=== PATIENT | male | born 1950 | race Caucasian/White ===

== ENCOUNTER 2017-03-04 08:27 | Day surgery (SDC) | payer MEDICARE, OTHER ==
[2017-03-04] VITALS (9 sets, daily range): BP systolic 106–167; BP diastolic 67–98; PULSE 54–72; RESP 16–20; TEMP 98–98.6; O2SAT 88–97
[~2017-03-04] VITALS: Ht 175.3 cm; Wt 97.3 kg
[~2017-03-04 08:27] MED LIST: AMLO2.5T PO; ARTISOL2 EACH EYE; ASPI81TA82 PO; BUSP15TA PO; DUONI NEB; ENOX40P SQ; HYDR-2768 PO; HYDR-3580 PO; METO50TA PO; MIRA33502 PO; MOBI15TA PO; PROT40TA PO; SENN-29 PO; SERO300T2 PO; SERT-129 PO; TAB-TAB PO; VASO10TA8 PO
[2017-03-04] MEDS ORDERED: HYDR-3799 PO (08:57)
[2017-03-04] MEDS ORDERED: METF500T PO (08:57)
[2017-03-04] MEDS ORDERED: AMMO12CR4 TOP (08:57)
[2017-03-04] MEDS ORDERED: DOCU100C PO (08:57)
[2017-03-04] MEDS ORDERED: LOPE2CAP PO (08:57)
[2017-03-04] MEDS ORDERED: LISI-515 PO (08:57)
[2017-03-04] MEDS ORDERED: MILKSUS PO (08:57)
[2017-03-04] MEDS ORDERED: ATOR10TA15 PO (08:57)
[2017-03-04] MEDS ORDERED: METO50TA PO (08:57)
[2017-03-04] MEDS ORDERED: SODIUM CHLORIDE FLUSH PRN IV FLUSH (09:00)
[2017-03-04] MEDS ORDERED: SODIUM CHLORIDE FLUSH BID IV FLUSH SCH (09:00)
[2017-03-04] MEDS ORDERED: SODIUM CHLOR 0.9% 1000 ML IV SCH (09:00)
[2017-03-04 09:28] LABS: AUTOMATED NEUTROPHIL # 5.5 TH/MM3 (1.8-7.7); BASOPHIL # 0.1 TH/MM3 (0-0.2); BASOPHIL % 0.8 % (0.0-2.0); EOSINOPHIL # 0.1 TH/MM3 (0-0.4); EOSINOPHIL % 1.3 % (0.0-4.0); HEMATOCRIT 39.7 % (39.0-51.0); HEMO FLAGS DIFF FINAL; LYMPH % 17.5 % (9.0-44.0); LYMPHOCYTE # 1.3 TH/MM3 (1.0-4.8); MEAN CELL VOLUME 97.7 FL (80.0-100.0); MEAN CORPUSCULAR HEMOGLOBIN 33.9 PG (27.0-34.0); MEAN CORPUSCULAR HGB CONC 34.7 % (32.0-36.0); MONO % 7.4 % (0.0-8.0); PLATELET COUNT 186 TH/MM3 (150-450); RED BLOOD COUNT 4.06 MIL/MM3 (4.50-5.90); RED CELL DISTRIBUTION WIDTH 13.8 % (11.6-17.2); WHITE BLOOD COUNT 7.5 TH/MM3 (4.0-11.0)
[2017-03-04 09:38] LABS: APTT (PATIENT) 27.3 SEC (24.3-30.1)
[2017-03-04] MEDS ORDERED: MIDAZOLAM HCL 5 MG/5 ML VIAL ONE (10:02)
[2017-03-04] MEDS ORDERED: fentaNYL CITRATE 250 MCG/5 ML AMP ONE (10:03)
[2017-03-04] MEDS ORDERED: LIDOCAINE 1%/EPINEPHrine 1:100,000 SOLN 20 ML VIAL ONE (10:10)
--- NOTE | 2017-03-04 11:43 | RADRPT ---
EXAM DATE/TIME: 03/04/2017 10:29 [place] COMPARISON: No previous studies available for comparison. INDICATIONS : Cirrhosis SEDATION TIME: 15 minutes BIOPSY SITE: liver MEDICATION(S): 1.) 2 mg midazolam (Versed) IV 2.) 100 mcg fentanyl (Sublimaze) IV DEVICE(S): 1.) 18 gauge BioPince needle MEDICAL HISTORY : Cirrhosis. SURGICAL HISTORY : None. ENCOUNTER: Initial ACUITY: 1 day PAIN SCORE: 0/10 LOCATION: abdomen A total of two core specimen(s) were obtained and sent to the laboratory for pathologic evaluation. PROCEDURE: 1. CT guided liver biopsy. 2. Conscious sedation with continuous EKG and oximetry monitoring. 3. EKG and oximetry remained stable throughout the procedure. Prior to the procedure informed consent was obtained. Any appropriate prior imaging studies were rev iewed. Using automated exposure control and adjustment of the mA and/or kV according to patient size, radiat ion dose was kept as low as reasonably achievable to obtain optimal diagnostic quality images. DICOM format image data is available electronically for review and comparison. The site was prepped in a sterile fashion. Full sterile technique was used, including cap, mask, miranda rile gloves and gown and a large sterile sheet. Hand hygiene and 2% chlorhexidine and/or betadine/al cohol prep was utilized per protocol for cutaneous antisepsis. The skin and subcutaneous tissues wer e infiltrated with local anesthetic solution. Under CT guidance 18 gauge core biopsy of the liver was obtained from anterior approach. Follow-up CT scan reveals no hemorrhage. The patient tolerated the procedure well and there were no complications. The patient was returned to the Radiology Outpatient Unit in stable condition. CONCLUSION: Uncomplicated CT guided biopsy. Gerhard Maurer MD FACR on March 04, 2017 at 11:40 Board Certified Radiologist. This report was verified electronically.
== END 2017-03-04 15:00 | disposition home or self-care (01) ==
LOC: HRAD 08:27 → HRIP 08:31 → HRAD 15:00
PROVIDERS: ATTEND Physician Assistant Medical
DX: B18.2 Chronic viral hepatitis C (principal); Z01.818 Encounter for other preprocedural examination
CPT/HCPCS: 47000; 77012; 85025; 85610; 85730; 88307; 88313; J2250; J3010; J7030